=== PATIENT | female | born 1990 | race Two or more races ===

== ENCOUNTER 2016-05-04 16:52 | Emergency (ER) | payer OTHER ==
[2016-05-04] MEDS ORDERED: TDAP ADULT 0.5 ML INJ (BOOSTRIX) IM ONE (17:22)
--- NOTE | 2016-05-04 18:10 | EDPHY ---
H & P Stated Complaint: Left index finger crushed at work Time Seen by Provider: 05/04/16 17:08 HPI/ROS: Chief complaint: Left pointer finger laceration History of present illness: This is a 25-year-old female who presents to the emergency department for evaluation of a laceration to her left pointer finger. This occurred just prior to arrival while at work. She was using a shell coremaker when she cut her finger on it. There has been pain, swelling and bleeding. She states she can still move the finger. No reported paresthesias or abnormal coolness. No other trauma reported. She is unsure of her last tetanus shot. - Personal History LMP (Females 10-55): Now Current Tetanus Diphtheria and Acellular Pertussis (TDAP): No - Medical/Surgical History Hx Asthma: No Hx Chronic Respiratory Disease: No Hx Diabetes: No Hx Cardiac Disease: No Hx Renal Disease: No Hx Cirrhosis: No Hx Alcoholism: Yes Hx HIV/AIDS: No Hx Splenectomy or Spleen Trauma: No Other PMH: recovering alcoholic - Social History Smoking Status: Never smoked - Physical Exam Exam: general: Alert, nontoxic Skin: 1 cm laceration to the lateral aspect of the left pointer finger, no foreign bodies or deep structures visualized on inspection. Musculoskeletal: Patient can flex and extend her finger in the DIPJ, PIP and MCP joint. Vascular: Capillary refill brisk in the finger. Radial pulses 2+. Neurologic: Sensation intact using light touch, she is having trouble discriminating on two-point discrimination Constitutional: Initial Vital Signs Temperature (C) 36.7 C 05/04/16 17:04 Heart Rate 78 05/04/16 17:04 Respiratory Rate 16 05/04/16 17:04 Blood Pressure 137/91 H 05/04/16 17:04 O2 Sat (%) 97 05/04/16 17:04 O2 Delivery Mode Room Air Allergies/Adverse Reactions: No Known Allergies Allergy (Unverified 05/04/16 17:03) Home Medications: Medication Instructions Recorded Cephalexin [Keflex] 500 mg PO QID 7 Days 05/04/16 Medical Decision Making - Diagnostics Imaging: X-ray series of the left finger shows a tuft fracture Procedures: Procedure: Splint placement. A finger splint was applied. After application of the splint I returned and re- examined the patient. The splint was adequately immobilizing the joint and distal to the splint the patient's circulation and sensation was intact. ED Course/Re-evaluation: Patient seen under the supervision of my secondary supervising physician Dr. Naveed Katz. Patient presents to the emergency department for a left finger laceration. Finger is vascularly intact. There is concern for neurologic compromise. X-rays obtained, small tuft fracture noted. Wound is cleaned, repaired with sutures and dressed. The finger is splinted. Her tetanus is updated. She will be started on antibiotics given fracture and open wound. She is discharged home. Referred to a hand surgeon for further evaluation and care. Return precautions were given to the patient. Patient voiced understanding and agreement with plan. Differential Diagnosis: Included but not limited to laceration, deep structure injury, foreign body contamination - Data Points Medications Given: Discontinued Medications Diphtheria/Tetanus/Acell Pertussis (Boostrix) 0.5 ml IM .ONCE ONE Stop: 05/04/16 17:23 Last Admin: 05/04/16 17:37 Dose: 0.5 ml Departure - Departure Disposition: Other Psych, Not [facility] Clinical Impression: Finger laceration Qualifiers: Encounter type: initial encounter Qualified Code(s): S61.219A - Laceration without foreign body of unspecified finger without damage to nail, initial encounter Fracture, finger, distal phalanx Qualifiers: Encounter type: initial encounter Finger: index finger Fracture type: open Fracture alignment: displaced Laterality: left Qualified Code(s): S62.631B - Displaced fracture of distal phalanx of left index finger, initial encounter for open fracture Condition: Good Instructions: Finger Laceration (ED) Additional Instructions: Follow-up with a hand doctor for continued evaluation and care I am concerned you might have nerve injury in your finger and this needs to be evaluated by a hand surgeon Use ibuprofen 600 mg 3 times a day for the next 2-3 days for pain Stitches to be removed in 7 days If symptoms worsen or new symptoms develop return to the emergency department for recheck Referrals: NONE *PRIMARY CARE P,. [Primary Care Provider] - As per Instructions Tonja Steen MD [Medical Doctor] - As per Instructions Prescriptions: Cephalexin [Keflex] 500 mg PO QID 7 Days
[2016-05-04 18:38] VITALS: BP 121/89; PULSE 70; RESP 20; TEMP 97.9; O2SAT 94
== END 2016-05-04 18:36 ==
PROC: 0HQGXZZ Repair Left Hand Skin, External Approach (ICD-10-PCS; principal; 2016-05-04)
DX: S62.631B Displaced fracture of distal phalanx of left index finger, initial encounter for open fracture (principal); S61.211A Laceration without foreign body of left index finger without damage to nail, initial encounter; Z23 Encounter for immunization; W45.8XXA Other foreign body or object entering through skin, initial encounter; Y92.69 Other specified industrial and construction area as the place of occurrence of the external cause; Y99.8 Other external cause status; Y93.89 Activity, other specified